=== PATIENT | male | born 1970 | race African-American/Black ===

== ENCOUNTER 2016-06-02 11:39 | Emergency (ER) | payer OTHER ==
--- NOTE | 2016-06-02 12:51 | DIAGNOSTIC IMAGING REPORT ---
PROCEDURE: XR SHOULDER 2 OR MORE VW-RIGHT INDICATION: PAIN TECHNIQUE: Three views. COMPARISON: None. FINDINGS: Osseous structures and joint spaces are normal. IMPRESSION: 1. Normal right shoulder.
--- NOTE | 2016-06-02 13:14 | ED NURSING NOTES ---
Clinical Report - Nurses [facility] [address] [place] [address] 06/02/2016 11:39 Patient: LALIT JAIN TRIAGE Triage time 11:45. Acuity: LEVEL 4. Chief Complaint: INJURY TO RIGHT SHOULDER. Alert. No acute distress. [place] COMA SCORE: [place] Coma Scale: 15- eyes open spontaneously (4); best verbal response- oriented x 4 (5); best motor response- obeys commands (6). --11:53 Janina Guaman R.N. 11:45 06/02/16. BP: 121/67. HR: 80. RR: 18. O2 saturation: 100% on room air. Temp: 97.8 F (oral). Pain level now: 12/04. --11:53 Janina Guaman R.N. Weight: 25.4 kg stated. Height/Length: 69 inches Per Patient. BMI: 8.3. --11:50 Janina Guaman R.N. Medications AmLODIPine Besylate Oral 10 mg, at bedtime. --11:47 Janina Guaman R.N. BusPIRone HCl Oral 15 mg, at bedtime. Cyclobenzaprine HCl Oral 5 mg, 3x a day. HydrALAZINE HCl Oral (Tablet 50 mg), 3 x day. Hydrochlorothiazide Oral 25 mg, daily. Lisinopril Oral 40 mg, 2x a day. Meclizine HCl Oral 25 mg, as needed. MetroNIDAZOLE Oral 500 mg. Naratriptan HCl Oral (Tablet 2.5 mg), as needed. Nortriptyline HCl Oral 75 mg, at bedtime. Omeprazole Oral 20 mg, 2x a day. Potassimin Oral. Promethazine HCl Oral 25 mg, as needed. Sertraline HCl Oral 100 mg, at bedtime. Spironolactone Oral 50 mg, 2x a day. Sucralfate Oral 1 gm, 3x a day. --11:47 Janina Guaman R.N. Medication/allergy information source: the patient. --11:53 Janina Guaman R.N. Allergies Amitriptyline. --11:47 Janina Guaman R.N. Benacar. --11:47 Janina Guaman R.N. Naproxen. --11:48 Janina Guaman R.N. History Arrived by private vehicle. Historian: patient. Unaccompanied. Primary physician (Jaret). This occurred (since last month). Mechanism of injury: (repetitive motion doing his job at [employer]). ( has been seen 3 times for same, describes as constant "ache" that becomes "sharp when he moves). Treatment MEASUREMENT AND SENSING TECHNICIAN: Applied ice and heat. SOCIAL HX: Smoker- current status unknown (no). Occasional alcohol use. No drug use. FALL RISK ASSESSMENT: Fall risk assessment completed. No fall risk identified. FUNCTIONAL ASSESSMENT: Functional assessment: no impairments noted. LEARNING NEEDS ASSESSMENT: The learning needs assessment revealed no barriers. --11:53 Janina Guaman R.N. PROBLEMS: Muscle Strain, Upper Extremity. Hypertension. --11:48 Janina Guaman R.N. ADDITIONAL SURGERIES: no known surgeries. Assessment GENERAL / NEURO / PSYCH: Alert. Oriented X 4. Appears in no acute distress. Patient appears calm and cooperative. RESPIRATORY: Respirations not labored. SKIN: Skin is warm and dry. --11:53 Janina Guaman R.N. Interventions ID and allergy band on patient. To treatment room. --11:53 Janina Guaman R.N. PHYSICAL ASSESSMENT 11:56 06/02/16. Ambulatory to room. Patient gowned. GENERAL / NEURO / PSYCH: Oriented X 4. Alert. Appears in no acute distress. EXTREMITIES: Capillary refill is less than 2 seconds in the extremities. SKIN: Skin is warm and dry. --11:56 Janina Guaman R.N. NURSING PROGRESS NOTES 11:57 06/02/16. Call light placed in reach. Side rails up x 1. Bed placed in lowest position. Brakes of bed on. --11:57 Janina Guaman R.N. 12:05 06/02/16. Care transferred and report received. --12:05 Kristin Cruz R.N. 12:15. Patient walked to radiology with [employer]. --12:29 Kristin Cruz R.N. 12:25. Patient walked back to ED from radiology with tech. --12:29 Kristin Cruz R.N. 12:29 06/02/16. Cold pack applied to the right shoulder. --12:29 Kristin Cruz R.N. 13:15. Sling applied to right arm by nurse; distal pulses intact, sensation intact and motor function within normal limits. --20:30 Kristin Cruz R.N. DISPOSITION / DISCHARGE Condition at departure: improved and stable. No learning barriers present. Discharge instructions provided and reviewed with the patient and spouse. Reviewed medication(s) (ultram, motrin). Treatments reviewed (ice, elevate, sling). Patient and spouse verbalized understanding. Written instructions provided in Georgian. The patient was discharged home and accompanied by spouse. He left the Emergency Department ambulatory and via private vehicle. Spouse driving. --20:30 Kristin Cruz R.N. 13:25 06/02/16. BP: 112/70. HR: 78. RR: 18. O2 saturation: 100%. Temp: deferred. Pain level now: 11/04. --20:30 Kristin Cruz R.N. Locked/Released at 06/02/2016 20:30 by Kristin Cruz R.N.
--- NOTE | 2016-06-02 13:14 | ED CLINICAL REPORT ---
Clinical Report - Physicians/Mid Levels [facility] [address] [place] [address] 06/02/2016 11:39 Patient: LALIT JAIN Time Seen: 12:13. Arrived- By private vehicle. Historian- patient. HISTORY OF PRESENT ILLNESS Chief Complaint: Injury to right shoulder. The injury happened over the past month. Occurred at work. Patient is experiencing severe pain that has recently become worse. ( the patient works at [employer]. He feels that repetitive use may be the cause of his pain.). REVIEW OF SYSTEMS The patient has had pain-related weakness of the right upper arm (severe). No swelling, tingling, numbness, chills or fever. No sweats, calf pain, chest pain, cough or difficulty breathing. No pedal edema, palpitations, abdominal pain, constipation or diarrhea. No nausea, vomiting or urinary problems. All systems otherwise negative, except as recorded above. PAST HISTORY The patient's dominant hand is the right. Problems: Muscle Strain, Upper Extremity. Hypertension. Additional Surgeries: no known surgeries. Medications: BusPIRone HCl Oral 15 mg, at bedtime. Cyclobenzaprine HCl Oral 5 mg, 3x a day. HydrALAZINE HCl Oral (Tablet 50 mg), 3 x day. Hydrochlorothiazide Oral 25 mg, daily. Lisinopril Oral 40 mg, 2x a day. Meclizine HCl Oral 25 mg, as needed. MetroNIDAZOLE Oral 500 mg. Naratriptan HCl Oral (Tablet 2.5 mg), as needed. Nortriptyline HCl Oral 75 mg, at bedtime. Omeprazole Oral 20 mg, 2x a day. Potassimin Oral. Promethazine HCl Oral 25 mg, as needed. Sertraline HCl Oral 100 mg, at bedtime. Spironolactone Oral 50 mg, 2x a day. Sucralfate Oral 1 gm, 3x a day. AmLODIPine Besylate Oral 10 mg, at bedtime. Allergies: Amitriptyline. Benacar. Naproxen. SOCIAL HISTORY Never smoker. No alcohol use or drug use. FAMILY HISTORY No significant family medical history. ADDITIONAL NOTES The nursing notes have been reviewed. PHYSICAL EXAM Vital Signs: 06/02/2016 11:45 BP: 121/67. HR: 80. RR: 18. O2 saturation: 100%. Temp: 97.8 F. Pain level now: 12/04. Have been reviewed. Appearance: Alert. Head: Head atraumatic. Eyes: Pupils equal, round and reactive to light. ENT: Pharynx normal. Neck: Neck supple. CVS: Heart sounds normal. Respiratory: Breath sounds normal. Abdomen: No visible injury. Back: Normal inspection. ROM normal. Skin: Skin intact. Skin warm and dry. Normal skin color. Normal skin turgor. Extremities: Right shoulder: mild tenderness. Limited ROM due to pain and weakness (diminished abduction, flexion and external and internal rotation). Neurovascular intact distally. No erythema, swelling or deformity. No joint effusion. Neuro, Vascular and Tendons: Sensation intact. Motor intact. Vascular status intact. Neuro: No motor deficit. No sensory deficit. LABS, X-RAYS, AND EKG X-Rays: Right shoulder negative. The X-rays were interpreted by the radiologist and contemporaneously by me. PROGRESS AND PROCEDURES Patient/family counseled. Old medical records ordered. Disposition: Discharged. Condition: stable. CLINICAL IMPRESSION Traumatic right rotator cuff strain. INSTRUCTIONS Apply ice. Wear simple sling until released. No driving or operating machinery while taking medication. Limit use of your hand. Do not work with right hand until released. (talk with your doctor about whether he would benefit from an MRI as discussed.). Warnings: GENERAL WARNINGS: Return or contact your physician immediately if your condition worsens or changes unexpectedly, if not improving as expected, or if other problems arise. Prescription Medications: Ultram 50 mg: take 1-2 orally every 4 hours as needed for pain. Dispense fifteen (15). No refills. Substitution is permissible. Follow-up: Follow up with your doctor in three days. Call for an appointment. Follow up with an orthopedic surgeon as scheduled. Understanding of the discharge instructions verbalized by patient. (Electronically signed by Aleksandar Hilton MD 06/10/2016 11:22)
--- NOTE | 2016-06-02 13:14 | ED ORDER SUMMARY ---
..... Patient: LALIT JAIN OrderSheet [facility] VisitID: [id number] [address] [place] [address] 46y, M Registration Date/Time: 06/02/2016 ORDER SHEET Weight: 25.4 kg (stated) Allergies: Amitriptyline, Benacar, Naproxen GENERAL ORDERS: Shoulder 2V or more Right Urgent (12:13 06/02/2016 Mike AVITIA) (12:29 DDeakirsten R.N.) Sling - arm (13:15 06/02/2016 Mike AVITIA) (13:35 DDzurdo R.N.) MEDICATION ORDERS: IV FLUIDS: ORDER SHEET NOTES: [Electronically signed by Kristin Cruz R.N. (20:30 06/02/2016)] [Electronically signed by Aleksandar Hilton MD (11:22 06/10/2016)] [Electronically locked/signed by Kritsin Cruz R.N. (20:30 06/02/2016)]
--- NOTE | 2016-06-02 13:14 | ED NURSING NOTES ---
Clinical Report - Nurses [facility] [address] [place] [address] 06/02/2016 11:39 Patient: LALIT JAIN TRIAGE Triage time 11:45. Acuity: LEVEL 4. Chief Complaint: INJURY TO RIGHT SHOULDER. Alert. No acute distress. [place] COMA SCORE: [place] Coma Scale: 15- eyes open spontaneously (4); best verbal response- oriented x 4 (5); best motor response- obeys commands (6). --11:53 Janina Guaman R.N. 11:45 06/02/16. BP: 121/67. HR: 80. RR: 18. O2 saturation: 100% on room air. Temp: 97.8 F (oral). Pain level now: 12/04. --11:53 Janina Guaman R.N. Weight: 25.4 kg stated. Height/Length: 69 inches Per Patient. BMI: 8.3. --11:50 Janina Guaman R.N. Medications AmLODIPine Besylate Oral 10 mg, at bedtime. --11:47 Janina Guaman R.N. BusPIRone HCl Oral 15 mg, at bedtime. Cyclobenzaprine HCl Oral 5 mg, 3x a day. HydrALAZINE HCl Oral (Tablet 50 mg), 3 x day. Hydrochlorothiazide Oral 25 mg, daily. Lisinopril Oral 40 mg, 2x a day. Meclizine HCl Oral 25 mg, as needed. MetroNIDAZOLE Oral 500 mg. Naratriptan HCl Oral (Tablet 2.5 mg), as needed. Nortriptyline HCl Oral 75 mg, at bedtime. Omeprazole Oral 20 mg, 2x a day. Potassimin Oral. Promethazine HCl Oral 25 mg, as needed. Sertraline HCl Oral 100 mg, at bedtime. Spironolactone Oral 50 mg, 2x a day. Sucralfate Oral 1 gm, 3x a day. --11:47 Janina Guaman R.N. Medication/allergy information source: the patient. --11:53 Janina Guaman R.N. Allergies Amitriptyline. --11:47 Janina Guaman R.N. Benacar. --11:47 Janina Guaman R.N. Naproxen. --11:48 Janina Guaman R.N. History Arrived by private vehicle. Historian: patient. Unaccompanied. Primary physician (Jaret). This occurred (since last month). Mechanism of injury: (repetitive motion doing his job at [employer]). ( has been seen 3 times for same, describes as constant "ache" that becomes "sharp when he moves). Treatment AIR CARGO SPECIALIST: Applied ice and heat. SOCIAL HX: Smoker- current status unknown (no). Occasional alcohol use. No drug use. FALL RISK ASSESSMENT: Fall risk assessment completed. No fall risk identified. FUNCTIONAL ASSESSMENT: Functional assessment: no impairments noted. LEARNING NEEDS ASSESSMENT: The learning needs assessment revealed no barriers. --11:53 Janina Guaman R.N. PROBLEMS: Muscle Strain, Upper Extremity. Hypertension. --11:48 Janina Guaman R.N. ADDITIONAL SURGERIES: no known surgeries. Assessment GENERAL / NEURO / PSYCH: Alert. Oriented X 4. Appears in no acute distress. Patient appears calm and cooperative. RESPIRATORY: Respirations not labored. SKIN: Skin is warm and dry. --11:53 Janina Guaman R.N. Interventions ID and allergy band on patient. To treatment room. --11:53 Janina Guaman R.N. PHYSICAL ASSESSMENT 11:56 06/02/16. Ambulatory to room. Patient gowned. GENERAL / NEURO / PSYCH: Oriented X 4. Alert. Appears in no acute distress. EXTREMITIES: Capillary refill is less than 2 seconds in the extremities. SKIN: Skin is warm and dry. --11:56 Janina Guaman R.N. NURSING PROGRESS NOTES 11:57 06/02/16. Call light placed in reach. Side rails up x 1. Bed placed in lowest position. Brakes of bed on. --11:57 Janina Guaman R.N. 12:05 06/02/16. Care transferred and report received. --12:05 Kristin Cruz R.N. 12:15. Patient walked to radiology with [employer] --12:29 Kristin Cruz R.N. 12:25. Patient walked back to ED from radiology with tech. --12:29 Kristin Cruz R.N. 12:29 06/02/16. Cold pack applied to the right shoulder. --12:29 Kristin Cruz R.N. 13:15. Sling applied to right arm by nurse; distal pulses intact, sensation intact and motor function within normal limits. --20:30 Kristin Cruz R.N. DISPOSITION / DISCHARGE Condition at departure: improved and stable. No learning barriers present. Discharge instructions provided and reviewed with the patient and spouse. Reviewed medication(s) (ultram, motrin). Treatments reviewed (ice, elevate, sling). Patient and spouse verbalized understanding. Written instructions provided in Welsh. The patient was discharged home and accompanied by spouse. He left the Emergency Department ambulatory and via private vehicle. Spouse driving. --20:30 Kristin Cruz R.N. 13:25 06/02/16. BP: 112/70. HR: 78. RR: 18. O2 saturation: 100%. Temp: deferred. Pain level now: 11/04. --20:30 Kristin Cruz R.N. Locked/Released at 06/02/2016 20:30 by Kristin Cruz R.N.
--- NOTE | 2016-06-02 13:14 | ED ORDER SUMMARY ---
..... Patient: LALIT JAIN OrderSheet [facility] VisitID: [id number] [address] [place] [address] 46y, M Registration Date/Time: 06/02/2016 ORDER SHEET Weight: 25.4 kg (stated) Allergies: Amitriptyline, Benacar, Naproxen GENERAL ORDERS: Shoulder 2V or more Right Urgent (12:13 06/02/2016 Mike AVITIA) (12:29 DDeakirsten R.N.) Sling - arm (13:15 06/02/2016 Mike AVITIA) (13:35 DDzurdo R.N.) MEDICATION ORDERS: IV FLUIDS: ORDER SHEET NOTES: [Electronically signed by Kristin Cruz R.N. (20:30 06/02/2016)] [Electronically signed by Aleksandar Hilton MD (11:22 06/10/2016)] [Electronically locked/signed by Kristin Cruz R.N. (20:30 06/02/2016)]
--- NOTE | 2016-06-02 13:14 | ED CLINICAL REPORT ---
Clinical Report - Physicians/Mid Levels [facility] [address] [place] [address] 06/02/2016 11:39 Patient: LALIT JAIN Time Seen: 12:13. Arrived- By private vehicle. Historian- patient. HISTORY OF PRESENT ILLNESS Chief Complaint: Injury to right shoulder. The injury happened over the past month. Occurred at work. Patient is experiencing severe pain that has recently become worse. ( the patient works at [employer]. He feels that repetitive use may be the cause of his pain.). REVIEW OF SYSTEMS The patient has had pain-related weakness of the right upper arm (severe). No swelling, tingling, numbness, chills or fever. No sweats, calf pain, chest pain, cough or difficulty breathing. No pedal edema, palpitations, abdominal pain, constipation or diarrhea. No nausea, vomiting or urinary problems. All systems otherwise negative, except as recorded above. PAST HISTORY The patient's dominant hand is the right. Problems: Muscle Strain, Upper Extremity. Hypertension. Additional Surgeries: no known surgeries. Medications: BusPIRone HCl Oral 15 mg, at bedtime. Cyclobenzaprine HCl Oral 5 mg, 3x a day. HydrALAZINE HCl Oral (Tablet 50 mg), 3 x day. Hydrochlorothiazide Oral 25 mg, daily. Lisinopril Oral 40 mg, 2x a day. Meclizine HCl Oral 25 mg, as needed. MetroNIDAZOLE Oral 500 mg. Naratriptan HCl Oral (Tablet 2.5 mg), as needed. Nortriptyline HCl Oral 75 mg, at bedtime. Omeprazole Oral 20 mg, 2x a day. Potassimin Oral. Promethazine HCl Oral 25 mg, as needed. Sertraline HCl Oral 100 mg, at bedtime. Spironolactone Oral 50 mg, 2x a day. Sucralfate Oral 1 gm, 3x a day. AmLODIPine Besylate Oral 10 mg, at bedtime. Allergies: Amitriptyline. Benacar. Naproxen. SOCIAL HISTORY Never smoker. No alcohol use or drug use. FAMILY HISTORY No significant family medical history. ADDITIONAL NOTES The nursing notes have been reviewed. PHYSICAL EXAM Vital Signs: 06/02/2016 11:45 BP: 121/67. HR: 80. RR: 18. O2 saturation: 100%. Temp: 97.8 F. Pain level now: 12/04. Have been reviewed. Appearance: Alert. Head: Head atraumatic. Eyes: Pupils equal, round and reactive to light. ENT: Pharynx normal. Neck: Neck supple. CVS: Heart sounds normal. Respiratory: Breath sounds normal. Abdomen: No visible injury. Back: Normal inspection. ROM normal. Skin: Skin intact. Skin warm and dry. Normal skin color. Normal skin turgor. Extremities: Right shoulder: mild tenderness. Limited ROM due to pain and weakness (diminished abduction, flexion and external and internal rotation). Neurovascular intact distally. No erythema, swelling or deformity. No joint effusion. Neuro, Vascular and Tendons: Sensation intact. Motor intact. Vascular status intact. Neuro: No motor deficit. No sensory deficit. LABS, X-RAYS, AND EKG X-Rays: Right shoulder negative. The X-rays were interpreted by the radiologist and contemporaneously by me. PROGRESS AND PROCEDURES Patient/family counseled. Old medical records ordered. Disposition: Discharged. Condition: stable. CLINICAL IMPRESSION Traumatic right rotator cuff strain. INSTRUCTIONS Apply ice. Wear simple sling until released. No driving or operating machinery while taking medication. Limit use of your hand. Do not work with right hand until released. (talk with your doctor about whether he would benefit from an MRI as discussed.). Warnings: GENERAL WARNINGS: Return or contact your physician immediately if your condition worsens or changes unexpectedly, if not improving as expected, or if other problems arise. Prescription Medications: Ultram 50 mg: take 1-2 orally every 4 hours as needed for pain. Dispense fifteen (15). No refills. Substitution is permissible. Follow-up: Follow up with your doctor in three days. Call for an appointment. Follow up with an orthopedic surgeon as scheduled. Understanding of the discharge instructions verbalized by patient. (Electronically signed by Aleksandar Hilton MD 06/10/2016 11:22)
--- NOTE | 2016-06-10 11:22 | ED DISCHARGE INSTRUCTIONS ---
Patient: LALIT JAIN General Instructions [facility] VisitID: [id number] [address] [place] [address] 46y, M Registration Date/Time: 06/02/2016 Traumatic right rotator cuff strain. INSTRUCTIONS Apply ice. Wear simple sling until released. No driving or operating machinery while taking medication. Limit use of your hand. Do not work with right hand until released. (talk with your doctor about whether he would benefit from an MRI as discussed.). Warnings: GENERAL WARNINGS: Return or contact your physician immediately if your condition worsens or changes unexpectedly, if not improving as expected, or if other problems arise. Prescription Medications: Ultram 50 mg: take 1-2 orally every 4 hours as needed for pain. Dispense fifteen (15). No refills. Substitution is permissible. Follow-up: Follow up with your doctor in three days. Call for an appointment. Follow up with an orthopedic surgeon as scheduled. Understanding of the discharge instructions verbalized by patient. ADDITIONAL INFORMATION Shoulder Impingement Syndrome The rotator cuff is a group of muscles and tendons that surround the shoulder joint. These muscles and tendons hold the arm in its joint and help the shoulder to rotate. The rotator cuff muscles and tendons can become inflamed from the wear and tear of repeated rubbing against the shoulder bone. This is called Shoulder Impingement Syndrome (also called Rotator Cuff Tendonitis). If your case is mild, it may be enough to rest the shoulder and then do prescribed exercises to strengthen the muscles. Anti-inflammatory medicines are useful. A limited number of steroid injections into the rotator cuff can be given to relieve inflammation. If the condition gets worse, the muscles may become thin and weak. This can lead to a Rotator Cuff tear. Symptoms of a Shoulder Impingement Syndrome may include: Shoulder pain that gets worse when raising your arm overhead. Weakness of the shoulder muscles with overhead activity. Popping and clicking with shoulder movement. Shoulder pain that wakes you up at night when sleeping on the affected shoulder. Home Care: Avoid activities that make your pain worse, such as raising your arms overhead, repeating the same motion over and over, or heavy lifting. Do not hold your arm in one position for a long time - keep it moving. Make an ice pack (ice cubes in a plastic bag, wrapped in a towel) and apply over the sore area for 20 minutes every 1-2 hours for the first day. You should continue with ice packs 3-4 times a day for the next two days. Continue the use of ice packs for relief of pain and swelling as needed. You may use acetaminophen (Tylenol) or ibuprofen (Motrin, Advil) to control pain, unless another medicine was prescribed. If prednisone was prescribed, do not take ibuprofen-type medicines. [NOTE: If you have chronic liver or kidney disease or ever had a stomach ulcer or GI bleeding, talk with your doctor before using these medicines.] After your symptoms decrease, you may benefit from physical therapy or a home exercise program to strengthen your shoulder muscles and increase your pain-free range of motion. Talk to your doctor about what is best for your condition. Follow Up with your doctor, or as advised by our staff. Return Promptly or contact your doctor if any of the following occur: Increasing shoulder pain, waking you up during the night Swelling in the involved shoulder or arm Numbness, tingling, or pain radiating down the arm to the hand Loss of strength in the affected side Sling A sling is designed to support your arm in a position of rest. It is used for injuries of the hand, forearm, upper arm, and shoulder. A shoulder that is immobilized too long can become stiff and lose range of motion. Follow up with your doctor as advised and do not use the sling longer than directed. Home Use: Leave the sling in place as long as directed by your doctor. Unless told otherwise, you may remove it when bathing, dressing, and when you go to sleep. The sling is adjustable. If it becomes loose, adjust it so that your forearm is horizontal (level with the ground). Your hand should be level with the elbow. Tramadol Hydrochloride Oral tablet What is this medicine? TRAMADOL (TRA ma dole) is a pain reliever. It is used to treat moderate to severe pain in adults. How should I use this medicine? Take this medicine by mouth with a full glass of water. Follow the directions on the prescription label. If the medicine upsets your stomach, take it with food or milk. Do not take more medicine than you are told to take. Talk to your warehouse receiving clerk regarding the use of this medicine in children. Special care may be needed. What side effects may I notice from receiving this medicine? Side effects that you should report to your doctor or health intensive care anaesthetist as soon as possible: allergic reactions like skin rash, itching or hives, swelling of the face, lips, or tongue breathing difficulties, wheezing confusion itching light headedness or fainting spells redness, blistering, peeling or loosening of the skin, including inside the mouth seizures Side effects that usually do not require medical attention (report to your doctor or health intensive care anaesthetist if they continue or are bothersome): constipation dizziness drowsiness headache nausea, vomiting What may interact with this medicine? Do not take this medicine with any of the following medications: MAOIs like Carbex, Eldepryl, Marplan, Nardil, and Parnate This medicine may also interact with the following medications: alcohol or medicines that contain alcohol antihistamines benzodiazepines bupropion carbamazepine or oxcarbazepine clozapine cyclobenzaprine digoxin furazolidone linezolid medicines for depression, anxiety, or psychotic disturbances medicines for migraine headache like almotriptan, eletriptan, frovatriptan, naratriptan, rizatriptan, sumatriptan, zolmitriptan medicines for pain like pentazocine, buprenorphine, butorphanol, meperidine, nalbuphine, and propoxyphene medicines for sleep muscle relaxants naltrexone phenobarbital phenothiazines like perphenazine, thioridazine, chlorpromazine, mesoridazine, fluphenazine, prochlorperazine, promazine, and trifluoperazine procarbazine warfarin What if I miss a dose? If you miss a dose, take it as soon as you can. If it is almost time for your next dose, take only that dose. Do not take double or extra doses. Where should I keep my medicine? Keep out of the reach of children. Store at room temperature between 15 and 30 degrees C (59 and 86 degrees F). Keep container tightly closed. Throw away any unused medicine after the expiration date. What should I tell my health care provider before I take this medicine? They need to know if you have any of these conditions: brain tumor depression drug abuse or addiction head injury if you frequently drink alcohol containing drinks kidney disease or trouble passing urine liver disease lung disease, asthma, or breathing problems seizures or epilepsy suicidal thoughts, plans, or attempt; a previous suicide attempt by you or a family member an unusual or allergic reaction to tramadol, codeine, other medicines, foods, dyes, or preservatives or trying to get breast-feeding What should I watch for while using this medicine? Tell your doctor or health intensive care anaesthetist if your pain does not go away, if it gets worse, or if you have new or a different type of pain. You may develop tolerance to the medicine. Tolerance means that you will need a higher dose of the medicine for pain relief. Tolerance is normal and is expected if you take this medicine for a long time. Do not suddenly stop taking your medicine because you may develop a severe reaction. Your body becomes used to the medicine. This does NOT mean you are addicted. Addiction is a behavior related to getting and using a drug for a non-medical reason. If you have pain, you have a medical reason to take pain medicine. Your doctor will tell you how much medicine to take. If your doctor wants you to stop the medicine, the dose will be slowly lowered over time to avoid any side effects. You may get drowsy or dizzy. Do not drive, use machinery, or do anything that needs mental alertness until you know how this medicine affects you. Do not stand or sit up quickly, especially if you are an older patient. This reduces the risk of dizzy or fainting spells. Alcohol can increase or decrease the effects of this medicine. Avoid alcoholic drinks. You may have constipation. Try to have a bowel movement at least every 2 to 3 days. If you do not have a bowel movement for 3 days, call your doctor or health intensive care anaesthetist. Your mouth may get dry. Chewing sugarless gum or sucking hard candy, and drinking plenty of water may help. Contact your doctor if the problem does not go away or is severe. You have been given the following additional information: Shoulder Impingement Syndrome Sling Tramadol Hydrochloride Oral tablet No driving or operating machinery while taking medication. Limit use of your hand. Do not work with right hand until released. (Electronically signed by Aleksandar Hilton MD 06/10/2016 11:22)
--- NOTE | 2016-06-10 11:22 | ED MED RECONCILIATION SUMMARY ---
Patient: LALIT JAIN Medication Reconciliation Report [facility] VisitID: [id number] [address] [place] [address] 46y, M Registration Date/Time: 06/02/2016 Weight: 25.4 kg Height/Length: 69 in. BMI: 8.3 ALLERGIES: Amitriptyline, Benacar, Naproxen The patient's Home Medications are listed below: THE FOLLOWING MEDICATIONS NEED TO BE RECONCILED: AmLODIPine Besylate Oral 10 mg, at bedtime BusPIRone HCl Oral 15 mg, at bedtime Cyclobenzaprine HCl Oral 5 mg, 3x a day HydrALAZINE HCl Oral (50 mg), 3 x day Hydrochlorothiazide Oral 25 mg, daily Lisinopril Oral 40 mg, 2x a day Meclizine HCl Oral 25 mg MetroNIDAZOLE Oral 500 mg Naratriptan HCl Oral (2.5 mg) Nortriptyline HCl Oral 75 mg, at bedtime Omeprazole Oral 20 mg, 2x a day Potassimin Oral Promethazine HCl Oral 25 mg Sertraline HCl Oral 100 mg, at bedtime Spironolactone Oral 50 mg, 2x a day Sucralfate Oral 1 gm, 3x a day The source(s) of the original Home Medication information: patient The following Medications were given to the patient in the Emergency Department: None. The following Medications were prescribed to the patient: Ultram 50 mg: take 1-2 orally every 4 hours as needed for pain. Dispense fifteen (15). No refills. Substitution is permissible. -- Aleksandar Hilton MD
--- NOTE | 2016-06-10 11:22 | ED MED RECONCILIATION SUMMARY ---
Patient: LALIT JAIN Medication Reconciliation Report [facility] VisitID: [id number] [address] [place] [address] 46y, M Registration Date/Time: 06/02/2016 Weight: 25.4 kg Height/Length: 69 in. BMI: 8.3 ALLERGIES: Amitriptyline, Benacar, Naproxen The patient's Home Medications are listed below: THE FOLLOWING MEDICATIONS NEED TO BE RECONCILED: AmLODIPine Besylate Oral 10 mg, at bedtime BusPIRone HCl Oral 15 mg, at bedtime Cyclobenzaprine HCl Oral 5 mg, 3x a day HydrALAZINE HCl Oral (50 mg), 3 x day Hydrochlorothiazide Oral 25 mg, daily Lisinopril Oral 40 mg, 2x a day Meclizine HCl Oral 25 mg MetroNIDAZOLE Oral 500 mg Naratriptan HCl Oral (2.5 mg) Nortriptyline HCl Oral 75 mg, at bedtime Omeprazole Oral 20 mg, 2x a day Potassimin Oral Promethazine HCl Oral 25 mg Sertraline HCl Oral 100 mg, at bedtime Spironolactone Oral 50 mg, 2x a day Sucralfate Oral 1 gm, 3x a day The source(s) of the original Home Medication information: patient The following Medications were given to the patient in the Emergency Department: None. The following Medications were prescribed to the patient: Ultram 50 mg: take 1-2 orally every 4 hours as needed for pain. Dispense fifteen (15). No refills. Substitution is permissible. -- Aleksandar Hilton MD
--- NOTE | 2016-06-10 11:22 | ED MAR SUMMARY ---
..... Medication Administration Record [facility] [address] [place] [id number] Patient: LALIT JAIN Visit ID: [id number] 46y, M Weight: 25.4 kg Height/Length: 69 in BMI: 8.3 ALLERGIES: Naproxen, Amitriptyline, Benacar
--- NOTE | 2016-06-10 11:22 | ED MAR SUMMARY ---
..... Medication Administration Record [facility] [address] [place], [place] [id number] Patient: LALIT JAIN Visit ID: [id number] 46y, M Weight: 25.4 kg Height/Length: 69 in BMI: 8.3 ALLERGIES: Naproxen, Amitriptyline, Benacar
== END 2016-06-02 13:25 | disposition home or self-care (01) ==
LOC: ED SRH 11:39
DX: S46.012A Strain of muscle(s) and tendon(s) of the rotator cuff of left shoulder, initial encounter (principal); X58.XXXA Exposure to other specified factors, initial encounter; Y93.9 Activity, unspecified; Y92.69 Other specified industrial and construction area as the place of occurrence of the external cause; Y99.0 Civilian activity done for income or pay; I10 Essential (primary) hypertension; Z79.899 Other long term (current) drug therapy; Z88.6 Allergy status to analgesic agent; Z88.8 Allergy status to other drugs, medicaments and biological substances

== ENCOUNTER 2016-06-08 09:28 | Emergency (ER) | payer OTHER ==
--- NOTE | 2016-06-08 11:05 | ED NURSING NOTES ---
Clinical Report - Nurses [facility] [address] [place] [address] 06/08/2016 9:29 Patient: LALIT JAIN TRIAGE Triage time 09:49. Acuity: LEVEL 4. Chief Complaint: RIGHT UPPER EXTREMITY PAIN. 09:58 06/08/16. Alert. No acute distress. [place]ER[place] COMA SCORE: [place] Coma Scale: 15- eyes open spontaneously (4); best verbal response- oriented x 4 (5); best motor response- obeys commands (6). --09:58 Theresa George R.N. 09:52 06/08/16. BP: 163/89. HR: 100. RR: 20. O2 saturation: 99% on room air. Temp: 97.7 F (oral). Pain level now 7/10. --09:58 Theresa George R.N. Weight: 116.1 kg stated. Height/Length: 69 inches Per Patient. BMI: 37.8. --09:54 Theresa George R.N. Medications AmLODIPine Besylate Oral 10 mg, at bedtime. BusPIRone HCl Oral 15 mg, at bedtime. Cyclobenzaprine HCl Oral 5 mg, 3x a day. HydrALAZINE HCl Oral (Tablet 50 mg), 3 x day. Hydrochlorothiazide Oral 25 mg, daily. Lisinopril Oral 40 mg, 2x a day. Meclizine HCl Oral 25 mg, as needed. MetroNIDAZOLE Oral 500 mg. Naratriptan HCl Oral (Tablet 2.5 mg), as needed. Nortriptyline HCl Oral 75 mg, at bedtime. Omeprazole Oral 20 mg, 2x a day. Potassimin Oral. Promethazine HCl Oral 25 mg, as needed. Sertraline HCl Oral 100 mg, at bedtime. --09:57 Theresa George R.N. Spironolactone Oral 50 mg, 2x a day. Sucralfate Oral 1 gm, 3x a day. --09:57 Theresa George R.N. Tramadol HCL Oral (ran out). --09:57 Theresa George R.N. Allergies Amitriptyline. Benacar. Naproxen. --09:57 Theresa George R.N. Medication/allergy information source: the patient. --09:58 Theresa George R.N. History Primary physician (sapna). ( work injury to right shoulder 1 month ago. 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 He states he has had consistent pain with the injury but ran out of pain meds yesterday that were prescribed here. He has an appt on 06/13 to f/u with [facility]). Injury occurred. This occurred (4 weeks ago). Occurred at work. Treatment MERCHANDISE DIRECTOR: None. SOCIAL HX: Never smoker. Occasional alcohol use. No drug use. FALL RISK ASSESSMENT: Fall risk assessment completed. No fall risk identified. NUTRITIONAL RISK ASSESSMENT: The nutritional risk assessment revealed no deficiencies. FUNCTIONAL ASSESSMENT: Functional assessment: no impairments noted. LEARNING NEEDS ASSESSMENT: The learning needs assessment revealed no barriers. SKIN INTEGRITY ASSESSMENT: Skin integrity risk assessment completed. No skin integrity risk identified. --09:58 Theresa George R.N. PROBLEMS: Rotator Cuff Injury. Muscle Strain, Upper Extremity. Hypertension. --09:58 Theresa George R.N. ADDITIONAL SURGERIES: no known surgeries. Interventions ID band on patient. To treatment room. --09:58 Theresa George R.N. PHYSICAL ASSESSMENT 09:58 06/08/16. Ambulatory to room. GENERAL / NEURO / PSYCH: Oriented X 4. Alert. Appears in no acute distress. EXTREMITIES: Neuro-vascular status intact to the extremity. Right shoulder: tenderness. SKIN: Skin intact. Skin is warm and dry. --09:58 Theresa George R.N. NURSING PROGRESS NOTES 09:58 06/08/16. The plan of care for this patient has been created. Cold pack applied. Call light placed in reach. Bed placed in lowest position. Brakes of bed on. Patient ready for evaluation- chart flagged. --09:58 Theresa George R.N. 10:30 06/08/2016 Toradol (Ketorolac Tromethamine) IM 60 mg given. Given in the left ventral gluteus. --10:40 Kristin Cruz R.N. 10:30 First contact with pt. Pt sitting on bed in no acute distress reading. Pt given meds. --10:40 Kristin Cruz R.N. 11:07 06/08/16. ( Pt states pain "a little better" down from 12/04 to 10/04, ERMD notified). --11:07 Kristin Cruz R.N. DISPOSITION / DISCHARGE 11:10. Condition at departure: improved and stable. No learning barriers present. Reviewed medication(s) (tramadol). Patient verbalized understanding. Written instructions provided in Liberian. The patient was discharged home and unaccompanied at time of discharge. He left the Emergency Department ambulatory and via private vehicle. Patient driving. --11:24 Kristin Cruz R.N. 11:07 06/08/16. BP: 147/91. HR: 89. RR: 18. O2 saturation: 98%. Temp: deferred. Pain level now: 10/04. --11:24 Kristin Cruz R.N. Locked/Released at 06/08/2016 11:24 by Kristin Cruz R.N.
--- NOTE | 2016-06-08 11:05 | ED ORDER SUMMARY ---
..... Patient: LALIT JAIN OrderSheet [facility] VisitID: [id number] [address] [place] [address] 46y, M Registration Date/Time: 06/08/2016 ORDER SHEET Weight: 116.1 kg (stated) Allergies: Amitriptyline, Benacar, Naproxen GENERAL ORDERS: MEDICATION ORDERS: Toradol IM 60 mg (NOW) (10:05 06/08/2016 Michelle Singh) (Ack 10:33 DDean R.N.) (10:40 DDean R.N.) Patient has previously tolerated Toradol IV FLUIDS: ORDER SHEET NOTES: [Electronically signed by Kristin Cruz R.N. (11:24 06/08/2016)] [Electronically signed by Oz Holley Dr. (08:37 06/11/2016)] [Electronically locked/signed by Kristin Cruz R.N. (11:06/08/2016)]
--- NOTE | 2016-06-08 11:05 | ED ORDER SUMMARY ---
..... Patient: LALIT JAIN OrderSheet [facility] VisitID: [id number] [address] [place] [address] 46y, M Registration Date/Time: 06/08/2016 ORDER SHEET Weight: 116.1 kg (stated) Allergies: Amitriptyline, Benacar, Naproxen GENERAL ORDERS: MEDICATION ORDERS: Toradol IM 60 mg (NOW) (10:05 06/08/2016 Michelle Singh) (Ack 10:33 DDean R.N.) (10:40 DDean R.N.) Patient has previously tolerated Toradol IV FLUIDS: ORDER SHEET NOTES: [Electronically signed by Kristin Cruz R.N. (11:24 06/08/2016)] [Electronically signed by Oz Holley Dr. (08:37 06/11/2016)] [Electronically locked/signed by Kristin Cruz R.N. (11:06/08/2016)]
--- NOTE | 2016-06-08 11:05 | ED NURSING NOTES ---
Clinical Report - Nurses [facility] [address] [place] [address] 06/08/2016 9:29 Patient: LALIT JAIN TRIAGE Triage time 09:49. Acuity: LEVEL 4. Chief Complaint: RIGHT UPPER EXTREMITY PAIN. 09:58 06/08/16. Alert. No acute distress. [place] COMA SCORE: [place] Coma Scale: 15- eyes open spontaneously (4); best verbal response- oriented x 4 (5); best motor response- obeys commands (6). --09:58 Theresa George R.N. 09:52 06/08/16. BP: 163/89. HR: 100. RR: 20. O2 saturation: 99% on room air. Temp: 97.7 F (oral). Pain level now 7/10. --09:58 Theresa George R.N. Weight: 116.1 kg stated. Height/Length: 69 inches Per Patient. BMI: 37.8. --09:54 Theresa George R.N. Medications AmLODIPine Besylate Oral 10 mg, at bedtime. BusPIRone HCl Oral 15 mg, at bedtime. Cyclobenzaprine HCl Oral 5 mg, 3x a day. HydrALAZINE HCl Oral (Tablet 50 mg), 3 x day. Hydrochlorothiazide Oral 25 mg, daily. Lisinopril Oral 40 mg, 2x a day. Meclizine HCl Oral 25 mg, as needed. MetroNIDAZOLE Oral 500 mg. Naratriptan HCl Oral (Tablet 2.5 mg), as needed. Nortriptyline HCl Oral 75 mg, at bedtime. Omeprazole Oral 20 mg, 2x a day. Potassimin Oral. Promethazine HCl Oral 25 mg, as needed. Sertraline HCl Oral 100 mg, at bedtime. --09:57 Theresa George R.N. Spironolactone Oral 50 mg, 2x a day. Sucralfate Oral 1 gm, 3x a day. --09:57 Theresa George R.N. Tramadol HCL Oral (ran out). --09:57 Theresa George R.N. Allergies Amitriptyline. Benacar. Naproxen. --09:57 Theresa George R.N. Medication/allergy information source: the patient. --09:58 Theresa George R.N. History Primary physician (sapna). ( work injury to right shoulder 1 month ago. 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 He states he has had consistent pain with the injury but ran out of pain meds yesterday that were prescribed here. He has an appt on 06/13 to f/u with [facility]). Injury occurred. This occurred (4 weeks ago). Occurred at work. 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 SOCIAL HX: Never smoker. Occasional alcohol use. No drug use. FALL RISK ASSESSMENT: Fall risk assessment completed. No fall risk identified. NUTRITIONAL RISK ASSESSMENT: The nutritional risk assessment revealed no deficiencies. FUNCTIONAL ASSESSMENT: Functional assessment: no impairments noted. LEARNING NEEDS ASSESSMENT: The learning needs assessment revealed no barriers. SKIN INTEGRITY ASSESSMENT: Skin integrity risk assessment completed. No skin integrity risk identified. --09:58 Theresa George R.N. PROBLEMS: Rotator Cuff Injury. Muscle Strain, Upper Extremity. Hypertension. --09:58 Theresa George R.N. ADDITIONAL SURGERIES: no known surgeries. Interventions ID band on patient. To treatment room. --09:58 Theresa Geogre R.N. PHYSICAL ASSESSMENT 09:58 06/08/16. Ambulatory to room. GENERAL / NEURO / PSYCH: Oriented X 4. Alert. Appears in no acute distress. EXTREMITIES: Neuro-vascular status intact to the extremity. Right shoulder: tenderness. SKIN: Skin intact. Skin is warm and dry. --09:58 Theresa George R.N. NURSING PROGRESS NOTES 09:58 06/08/16. The plan of care for this patient has been created. Cold pack applied. Call light placed in reach. Bed placed in lowest position. Brakes of bed on. Patient ready for evaluation- chart flagged. --09:58 Theresa George R.N. 10:30 06/08/2016 Toradol (Ketorolac Tromethamine) IM 60 mg given. Given in the left ventral gluteus. --10:40 Kristin Cruz R.N. 10:30 First contact with pt. Pt sitting on bed in no acute distress reading. Pt given meds. --10:40 Kristin Cruz R.N. 11:07 06/08/16. ( Pt states pain "a little better" down from 12/04 to 10/04, ERMD notified). --11:07 Kristin Cruz R.N. DISPOSITION / DISCHARGE 11:10. Condition at departure: improved and stable. No learning barriers present. Reviewed medication(s) (tramadol). Patient verbalized understanding. Written instructions provided in Bulgarian. The patient was discharged home and unaccompanied at time of discharge. He left the Emergency Department ambulatory and via private vehicle. Patient driving. --11:24 Kristin Cruz R.N. 11:07 06/08/16. BP: 147/91. HR: 89. RR: 18. O2 saturation: 98%. Temp: deferred. Pain level now: 10/04. --11:24 Kristin Cruz R.N. Locked/Released at 06/08/2016 11:24 by Kristin Cruz R.N.
--- NOTE | 2016-06-08 11:05 | ED CLINICAL REPORT ---
Clinical Report - Physicians/Mid Levels [facility] [address] [place] [address] 06/08/2016 9:29 [id number] Time Seen: 09:51; initial patient contact. Arrived- By private vehicle. Historian- patient. RETURN VISIT: recently seen in this ED by another ED physician. Seen now for the same problem as before. HISTORY OF PRESENT ILLNESS Chief Complaint: Injury to right shoulder. The injury happened about 6 weeks ago. Occurred at work. Patient is experiencing mild pain. Patient denies injury to the head or neck. ( Out of pain meds. States he has an appt next week w/ ortho.). REVIEW OF SYSTEMS No swelling, tingling, numbness or weakness. All systems otherwise negative, except as recorded above. PAST HISTORY Rotator Cuff Injury. Muscle Strain, Upper Extremity. Hypertension. no known surgeries. SOCIAL HISTORY Never smoker. Occasional alcohol use. No drug use. ADDITIONAL NOTES The nursing notes have been reviewed with agreement regarding the chief complaint, PMH and patient medications and allergies. PHYSICAL EXAM Vital Signs: 06/08/2016 09:52 BP: 163/89. HR: 100. RR: 20. O2 saturation: 99%. Temp: 97.7 F. Have been reviewed. Hypertensive. Tachycardic. Respiratory rate normal. Temperature normal. Oxygen saturation normal. Appearance: Alert. Oriented X3. No acute distress. Skin: Skin intact. Skin warm and dry. Normal skin color. Extremities: Right shoulder: moderate tenderness located in the lateral aspect of the shoulder and deltoid muscle. Limited ROM due to pain (diminished abduction, adduction, flexion, extension and external and internal rotation). Neurovascular intact distally. No erythema, swelling, ecchymosis or deformity. No joint effusion. Shoulder otherwise negative. Extremities otherwise negative. Neuro, Vascular and Tendons: Sensation intact. Motor intact. Vascular status intact. Tendon function intact. Neuro: Oriented X 3. No motor deficit. No sensory deficit. PROGRESS AND PROCEDURES Disposition: Discharged home in good and improved condition. Condition: good. CLINICAL IMPRESSION Nontraumatic right rotator cuff sprain. INSTRUCTIONS Wear simple sling until released. Off work today. Do not work with right hand until released. Your Current Medications: CONTINUE TAKING THE FOLLOWING MEDICATIONS: AmLODIPine Besylate Oral : 10 mg at bedtime. BusPIRone HCl Oral : 15 mg at bedtime. Cyclobenzaprine HCl Oral : 5 mg 3x a day. HydrALAZINE HCl Oral : Tablet 50 mg, 3 x day. Hydrochlorothiazide Oral : 25 mg daily. Lisinopril Oral : 40 mg 2x a day. Meclizine HCl Oral : 25 mg, prn. MetroNIDAZOLE Oral : 500 mg. Naratriptan HCl Oral : Tablet 2.5 mg, prn. Nortriptyline HCl Oral : 75 mg at bedtime. Omeprazole Oral : 20 mg 2x a day. Potassimin Oral. Promethazine HCl Oral : 25 mg, prn. Sertraline HCl Oral : 100 mg at bedtime. Spironolactone Oral : 50 mg 2x a day. Sucralfate Oral : 1 gm 3x a day. Tramadol HCL Oral : ran out. Prescription Medications: Tramadol 50 mg: take 1 orally every 6 hours as needed for pain and stiffness. Do not take more than 8 tablets in a 24 hour period. Dispense thirty (30). No refills. Follow-up: Follow up with your doctor in about four days. Call for an appointment. Reason for referral: Youo MUST see your PCP for pain medication details. Blood pressure screening was not performed during this visit because the patient has an active diagnosis of hypertension. The patient should follow up with a primary care provider for blood pressure management. (Electronically signed by Oz Holley Dr. 06/11/2016 8:37)
--- NOTE | 2016-06-11 08:37 | ED MAR SUMMARY ---
..... Medication Administration Record [facility] [address] [place] [address] Patient: LALIT JAIN Visit ID: [id number] 46y, M Weight: 116.1 kg Height/Length: 69 in BMI: 37.8 ALLERGIES: Amitriptyline, Benacar, Naproxen Given 10:30 06/08/2016 Anthony, Kristin RHanna. Medication Administered: TORADOL [IM] (KETOROLAC TROMETHAMINE), Dose: 60 mg IM. Medication Ordered: Toradol IM 60 mg (NOW).
--- NOTE | 2016-06-11 08:37 | ED MAR SUMMARY ---
..... Medication Administration Record [facility] [address] [place] [address] Patient: LALIT JAIN Visit ID: [id number] 46y, M Weight: 116.1 kg Height/Length: 69 in BMI: 37.8 ALLERGIES: Amitriptyline, Benacar, Naproxen Given 10:30 06/08/2016 Anthony, Kristin RHanna. Medication Administered: TORADOL [IM] (KETOROLAC TROMETHAMINE), Dose: 60 mg IM. Medication Ordered: Toradol IM 60 mg (NOW).
--- NOTE | 2016-06-11 08:37 | ED DISCHARGE INSTRUCTIONS ---
Patient: LALIT JAIN General Instructions [facility] VisitID: [id number] [place] [address] 46y, M Registration Date/Time: 06/08/2016 Nontraumatic right rotator cuff sprain. INSTRUCTIONS Wear simple sling until released. Off work today. Do not work with right hand until released. Your Current Medications: CONTINUE TAKING THE FOLLOWING MEDICATIONS: AmLODIPine Besylate Oral : 10 mg at bedtime. BusPIRone HCl Oral : 15 mg at bedtime. Cyclobenzaprine HCl Oral : 5 mg 3x a day. HydrALAZINE HCl Oral : Tablet 50 mg, 3 x day. Hydrochlorothiazide Oral : 25 mg daily. Lisinopril Oral : 40 mg 2x a day. Meclizine HCl Oral : 25 mg, prn. MetroNIDAZOLE Oral : 500 mg. Naratriptan HCl Oral : Tablet 2.5 mg, prn. Nortriptyline HCl Oral : 75 mg at bedtime. Omeprazole Oral : 20 mg 2x a day. Potassimin Oral. Promethazine HCl Oral : 25 mg, prn. Sertraline HCl Oral : 100 mg at bedtime. Spironolactone Oral : 50 mg 2x a day. Sucralfate Oral : 1 gm 3x a day. Tramadol HCL Oral : ran out. Prescription Medications: Tramadol 50 mg: take 1 orally every 6 hours as needed for pain and stiffness. Do not take more than 8 tablets in a 24 hour period. Dispense thirty (30). No refills. Follow-up: Follow up with your doctor in about four days. Call for an appointment. Reason for referral: Youo MUST see your PCP for pain medication details. Blood pressure screening was not performed during this visit because the patient has an active diagnosis of hypertension. The patient should follow up with a primary care provider for blood pressure management. ADDITIONAL INFORMATION Sling A sling is designed to support your arm in a position of rest. It is used for injuries of the hand, forearm, upper arm, and shoulder. A shoulder that is immobilized too long can become stiff and lose range of motion. Follow up with your doctor as advised and do not use the sling longer than directed. Home Use: Leave the sling in place as long as directed by your doctor. Unless told otherwise, you may remove it when bathing, dressing, and when you go to sleep. The sling is adjustable. If it becomes loose, adjust it so that your forearm is horizontal (level with the ground). Your hand should be level with the elbow. Tramadol Hydrochloride Oral tablet What is this medicine? TRAMADOL (TRA ma dole) is a pain reliever. It is used to treat moderate to severe pain in adults. How should I use this medicine? Take this medicine by mouth with a full glass of water. Follow the directions on the prescription label. If the medicine upsets your stomach, take it with food or milk. Do not take more medicine than you are told to take. Talk to your strategic advisor regarding the use of this medicine in children. Special care may be needed. What side effects may I notice from receiving this medicine? Side effects that you should report to your doctor or health care transition coordinator as soon as possible: allergic reactions like skin rash, itching or hives, swelling of the face, lips, or tongue breathing difficulties, wheezing confusion itching light headedness or fainting spells redness, blistering, peeling or loosening of the skin, including inside the mouth seizures Side effects that usually do not require medical attention (report to your doctor or health care transition coordinator if they continue or are bothersome): constipation dizziness drowsiness headache nausea, vomiting What may interact with this medicine? Do not take this medicine with any of the following medications: MAOIs like Carbex, Eldepryl, Marplan, Nardil, and Parnate This medicine may also interact with the following medications: alcohol or medicines that contain alcohol antihistamines benzodiazepines bupropion carbamazepine or oxcarbazepine clozapine cyclobenzaprine digoxin furazolidone linezolid medicines for depression, anxiety, or psychotic disturbances medicines for migraine headache like almotriptan, eletriptan, frovatriptan, naratriptan, rizatriptan, sumatriptan, zolmitriptan medicines for pain like pentazocine, buprenorphine, butorphanol, meperidine, nalbuphine, and propoxyphene medicines for sleep muscle relaxants naltrexone phenobarbital phenothiazines like perphenazine, thioridazine, chlorpromazine, mesoridazine, fluphenazine, prochlorperazine, promazine, and trifluoperazine procarbazine warfarin What if I miss a dose? If you miss a dose, take it as soon as you can. If it is almost time for your next dose, take only that dose. Do not take double or extra doses. Where should I keep my medicine? Keep out of the reach of children. Store at room temperature between 15 and 30 degrees C (59 and 86 degrees F). Keep container tightly closed. Throw away any unused medicine after the expiration date. What should I tell my health care provider before I take this medicine? They need to know if you have any of these conditions: brain tumor depression drug abuse or addiction head injury if you frequently drink alcohol containing drinks kidney disease or trouble passing urine liver disease lung disease, asthma, or breathing problems seizures or epilepsy suicidal thoughts, plans, or attempt; a previous suicide attempt by you or a family member an unusual or allergic reaction to tramadol, codeine, other medicines, foods, dyes, or preservatives or trying to get breast-feeding What should I watch for while using this medicine? Tell your doctor or health care transition coordinator if your pain does not go away, if it gets worse, or if you have new or a different type of pain. You may develop tolerance to the medicine. Tolerance means that you will need a higher dose of the medicine for pain relief. Tolerance is normal and is expected if you take this medicine for a long time. Do not suddenly stop taking your medicine because you may develop a severe reaction. Your body becomes used to the medicine. This does NOT mean you are addicted. Addiction is a behavior related to getting and using a drug for a non-medical reason. If you have pain, you have a medical reason to take pain medicine. Your doctor will tell you how much medicine to take. If your doctor wants you to stop the medicine, the dose will be slowly lowered over time to avoid any side effects. You may get drowsy or dizzy. Do not drive, use machinery, or do anything that needs mental alertness until you know how this medicine affects you. Do not stand or sit up quickly, especially if you are an older patient. This reduces the risk of dizzy or fainting spells. Alcohol can increase or decrease the effects of this medicine. Avoid alcoholic drinks. You may have constipation. Try to have a bowel movement at least every 2 to 3 days. If you do not have a bowel movement for 3 days, call your doctor or health care transition coordinator. Your mouth may get dry. Chewing sugarless gum or sucking hard candy, and drinking plenty of water may help. Contact your doctor if the problem does not go away or is severe. You have been given the following additional information: Sling Tramadol Hydrochloride Oral tablet Off work today. Do not work with right hand until released. (Electronically signed by Oz Holley Dr. 06/11/2016 8:37)
--- NOTE | 2016-06-11 08:37 | ED DISCHARGE INSTRUCTIONS ---
Patient: LALIT JAIN General Instructions [facility] VisitID: [id number] [place] [address] 46y, M Registration Date/Time: 06/08/2016 Nontraumatic right rotator cuff sprain. INSTRUCTIONS Wear simple sling until released. Off work today. Do not work with right hand until released. Your Current Medications: CONTINUE TAKING THE FOLLOWING MEDICATIONS: AmLODIPine Besylate Oral : 10 mg at bedtime. BusPIRone HCl Oral : 15 mg at bedtime. Cyclobenzaprine HCl Oral : 5 mg 3x a day. HydrALAZINE HCl Oral : Tablet 50 mg, 3 x day. Hydrochlorothiazide Oral : 25 mg daily. Lisinopril Oral : 40 mg 2x a day. Meclizine HCl Oral : 25 mg, prn. MetroNIDAZOLE Oral : 500 mg. Naratriptan HCl Oral : Tablet 2.5 mg, prn. Nortriptyline HCl Oral : 75 mg at bedtime. Omeprazole Oral : 20 mg 2x a day. Potassimin Oral. Promethazine HCl Oral : 25 mg, prn. Sertraline HCl Oral : 100 mg at bedtime. Spironolactone Oral : 50 mg 2x a day. Sucralfate Oral : 1 gm 3x a day. Tramadol HCL Oral : ran out. Prescription Medications: Tramadol 50 mg: take 1 orally every 6 hours as needed for pain and stiffness. Do not take more than 8 tablets in a 24 hour period. Dispense thirty (30). No refills. Follow-up: Follow up with your doctor in about four days. Call for an appointment. Reason for referral: Youo MUST see your PCP for pain medication details. Blood pressure screening was not performed during this visit because the patient has an active diagnosis of hypertension. The patient should follow up with a primary care provider for blood pressure management. ADDITIONAL INFORMATION Sling A sling is designed to support your arm in a position of rest. It is used for injuries of the hand, forearm, upper arm, and shoulder. A shoulder that is immobilized too long can become stiff and lose range of motion. Follow up with your doctor as advised and do not use the sling longer than directed. Home Use: Leave the sling in place as long as directed by your doctor. Unless told otherwise, you may remove it when bathing, dressing, and when you go to sleep. The sling is adjustable. If it becomes loose, adjust it so that your forearm is horizontal (level with the ground). Your hand should be level with the elbow. Tramadol Hydrochloride Oral tablet What is this medicine? TRAMADOL (TRA ma dole) is a pain reliever. It is used to treat moderate to severe pain in adults. How should I use this medicine? Take this medicine by mouth with a full glass of water. Follow the directions on the prescription label. If the medicine upsets your stomach, take it with food or milk. Do not take more medicine than you are told to take. Talk to your program manager environmental planning regarding the use of this medicine in children. Special care may be needed. What side effects may I notice from receiving this medicine? Side effects that you should report to your doctor or health day care teacher as soon as possible: allergic reactions like skin rash, itching or hives, swelling of the face, lips, or tongue breathing difficulties, wheezing confusion itching light headedness or fainting spells redness, blistering, peeling or loosening of the skin, including inside the mouth seizures Side effects that usually do not require medical attention (report to your doctor or health day care teacher if they continue or are bothersome): constipation dizziness drowsiness headache nausea, vomiting What may interact with this medicine? Do not take this medicine with any of the following medications: MAOIs like Carbex, Eldepryl, Marplan, Nardil, and Parnate This medicine may also interact with the following medications: alcohol or medicines that contain alcohol antihistamines benzodiazepines bupropion carbamazepine or oxcarbazepine clozapine cyclobenzaprine digoxin furazolidone linezolid medicines for depression, anxiety, or psychotic disturbances medicines for migraine headache like almotriptan, eletriptan, frovatriptan, naratriptan, rizatriptan, sumatriptan, zolmitriptan medicines for pain like pentazocine, buprenorphine, butorphanol, meperidine, nalbuphine, and propoxyphene medicines for sleep muscle relaxants naltrexone phenobarbital phenothiazines like perphenazine, thioridazine, chlorpromazine, mesoridazine, fluphenazine, prochlorperazine, promazine, and trifluoperazine procarbazine warfarin What if I miss a dose? If you miss a dose, take it as soon as you can. If it is almost time for your next dose, take only that dose. Do not take double or extra doses. Where should I keep my medicine? Keep out of the reach of children. Store at room temperature between 15 and 30 degrees C (59 and 86 degrees F). Keep container tightly closed. Throw away any unused medicine after the expiration date. What should I tell my health care provider before I take this medicine? They need to know if you have any of these conditions: brain tumor depression drug abuse or addiction head injury if you frequently drink alcohol containing drinks kidney disease or trouble passing urine liver disease lung disease, asthma, or breathing problems seizures or epilepsy suicidal thoughts, plans, or attempt; a previous suicide attempt by you or a family member an unusual or allergic reaction to tramadol, codeine, other medicines, foods, dyes, or preservatives or trying to get breast-feeding What should I watch for while using this medicine? Tell your doctor or health day care teacher if your pain does not go away, if it gets worse, or if you have new or a different type of pain. You may develop tolerance to the medicine. Tolerance means that you will need a higher dose of the medicine for pain relief. Tolerance is normal and is expected if you take this medicine for a long time. Do not suddenly stop taking your medicine because you may develop a severe reaction. Your body becomes used to the medicine. This does NOT mean you are addicted. Addiction is a behavior related to getting and using a drug for a non-medical reason. If you have pain, you have a medical reason to take pain medicine. Your doctor will tell you how much medicine to take. If your doctor wants you to stop the medicine, the dose will be slowly lowered over time to avoid any side effects. You may get drowsy or dizzy. Do not drive, use machinery, or do anything that needs mental alertness until you know how this medicine affects you. Do not stand or sit up quickly, especially if you are an older patient. This reduces the risk of dizzy or fainting spells. Alcohol can increase or decrease the effects of this medicine. Avoid alcoholic drinks. You may have constipation. Try to have a bowel movement at least every 2 to 3 days. If you do not have a bowel movement for 3 days, call your doctor or health day care teacher. Your mouth may get dry. Chewing sugarless gum or sucking hard candy, and drinking plenty of water may help. Contact your doctor if the problem does not go away or is severe. You have been given the following additional information: Sling Tramadol Hydrochloride Oral tablet Off work today. Do not work with right hand until released. (Electronically signed by Oz Holley Dr. 06/11/2016 8:37)
--- NOTE | 2016-06-11 08:37 | ED MED RECONCILIATION SUMMARY ---
Patient: LALIT JAIN Medication Reconciliation Report [facility] VisitID: [id number] [place] [address] 46y, M Registration Date/Time: 06/08/2016 Weight: 116.1 kg Height/Length: 69 in. BMI: 37.8 ALLERGIES: Amitriptyline, Benacar, Naproxen The patient's Home Medications are listed below: CONTINUE TAKING THE FOLLOWING MEDICATIONS: AmLODIPine Besylate Oral 10 mg, at bedtime BusPIRone HCl Oral 15 mg, at bedtime Cyclobenzaprine HCl Oral 5 mg, 3x a day HydrALAZINE HCl Oral (50 mg), 3 x day Hydrochlorothiazide Oral 25 mg, daily Lisinopril Oral 40 mg, 2x a day Meclizine HCl Oral 25 mg MetroNIDAZOLE Oral 500 mg Naratriptan HCl Oral (2.5 mg) Nortriptyline HCl Oral 75 mg, at bedtime Omeprazole Oral 20 mg, 2x a day Potassimin Oral Promethazine HCl Oral 25 mg Sertraline HCl Oral 100 mg, at bedtime Spironolactone Oral 50 mg, 2x a day Sucralfate Oral 1 gm, 3x a day Tramadol HCL Oral, ran out The source(s) of the original Home Medication information: patient The following Medications were given to the patient in the Emergency Department: Toradol [IM] IM 60 mg, administered: 06/08/2016 10:30:00 AM The following Medications were prescribed to the patient: Tramadol 50 mg: take 1 orally every 6 hours as needed for pain and stiffness. Do not take more than 8 tablets in a 24 hour period. Dispense thirty (30). No refills. -- Oz Holley Dr.
--- NOTE | 2016-06-11 08:37 | ED MED RECONCILIATION SUMMARY ---
Patient: LALIT JAIN Medication Reconciliation Report [facility] VisitID: [id number] [place] [address] 46y, M Registration Date/Time: 06/08/2016 Weight: 116.1 kg Height/Length: 69 in. BMI: 37.8 ALLERGIES: Amitriptyline, Benacar, Naproxen The patient's Home Medications are listed below: CONTINUE TAKING THE FOLLOWING MEDICATIONS: AmLODIPine Besylate Oral 10 mg, at bedtime BusPIRone HCl Oral 15 mg, at bedtime Cyclobenzaprine HCl Oral 5 mg, 3x a day HydrALAZINE HCl Oral (50 mg), 3 x day Hydrochlorothiazide Oral 25 mg, daily Lisinopril Oral 40 mg, 2x a day Meclizine HCl Oral 25 mg MetroNIDAZOLE Oral 500 mg Naratriptan HCl Oral (2.5 mg) Nortriptyline HCl Oral 75 mg, at bedtime Omeprazole Oral 20 mg, 2x a day Potassimin Oral Promethazine HCl Oral 25 mg Sertraline HCl Oral 100 mg, at bedtime Spironolactone Oral 50 mg, 2x a day Sucralfate Oral 1 gm, 3x a day Tramadol HCL Oral, ran out The source(s) of the original Home Medication information: patient The following Medications were given to the patient in the Emergency Department: Toradol [IM] IM 60 mg, administered: 06/08/2016 10:30:00 AM The following Medications were prescribed to the patient: Tramadol 50 mg: take 1 orally every 6 hours as needed for pain and stiffness. Do not take more than 8 tablets in a 24 hour period. Dispense thirty (30). No refills. -- Oz Holley Dr.
== END 2016-06-08 11:10 | disposition home or self-care (01) ==
LOC: ED SRH 09:28
DX: S43.421D Sprain of right rotator cuff capsule, subsequent encounter (principal); X58.XXXD Exposure to other specified factors, subsequent encounter; I10 Essential (primary) hypertension; Z79.899 Other long term (current) drug therapy; Z88.6 Allergy status to analgesic agent; Z88.8 Allergy status to other drugs, medicaments and biological substances